=== PATIENT | female | born 1980 | race Caucasian/White ===

== ENCOUNTER 2018-09-14 10:48 | Emergency (ER) | payer BC ==
--- NOTE | 2018-09-14 11:07 | EDPHY ---
H & P Stated Complaint: left rib area pain sp fall on Wednesday on ice. Time Seen by Provider: 09/14/18 11:02 HPI/ROS: 38 yo F presents c/o slipped on ice on Wednesday, 2 days ago, and landed on her left side on pavers, now with left anterior lateral rib pain. No cough, no fever or chills. Pt denies prior hx of rib fractures. No abdominal pain, no nausea, or vomiting. Review of systems as per hpi-left anterior rib pain General no fever no chills no weakness HEENT no eye pain no eye discharge. No eye redness, no sore throat Respiratory no cough, no shortness of breath Cardiac no chest pain, no peripheral edema GI no abdominal pain, no diarrhea, no constipation, no nausea, no vomiting no flank pain, no hematuria, no dysuria Musculoskeletal no myalgias, no joint pain Heme no easy bruising, no easy bleeding Endo no polyuria, no polydipsia Skin no rashes, no pruritus Neuro no syncope, no dizziness, no headaches Psych is no suicidal ideation, no homicidal ideation Source: Patient Exam Limitations: No limitations - Personal History LMP (Females 10-55): 1-7 Days Ago Current Tetanus Diphtheria and Acellular Pertussis (TDAP): Yes Tetanus Vaccine Date: 2014 - Medical/Surgical History Hx Asthma: No Hx Chronic Respiratory Disease: No Hx Diabetes: No Hx Cardiac Disease: No Hx Renal Disease: No Hx Cirrhosis: No Hx Alcoholism: No Hx HIV/AIDS: No Hx Splenectomy or Spleen Trauma: No Other PMH: Ectopic surgery. Hypothyroid - Family History Significant Family History: No pertinent family hx - Social History Smoking Status: Heavy smoker Alcohol Use: Occasionally Drug Use: None - Physical Exam Exam: 38 yo F HEENT atraumatic normocephalic, extraocular muscles intact, anicteric Oropharynx negative for erythema negative exudate, tolerating her own secretions Neck supple no meningismus Lungs clear to auscultation bilaterally Chest left lower anterior lateral chest ttp, no crepitus, no ecchymoses Heart regular rate and rhythm without murmur rub or gallop Abdomen nondistended normoactive bowel sounds soft nontender Back no CVA tenderness, no step-offs, no spinal tenderness Extremities no cyanosis clubbing or edema Neuro alert and oriented, no focal deficits Constitutional: Initial Vital Signs Temperature (C) 36.5 C 09/14/18 10:54 Heart Rate 80 09/14/18 10:54 Respiratory Rate 16 09/14/18 10:54 Blood Pressure 128/97 H 09/14/18 10:54 O2 Sat (%) 99 09/14/18 10:54 O2 Delivery Mode Room Air Allergies/Adverse Reactions: Penicillins Allergy (Verified 09/14/18 10:59) Home Medications: Medication Instructions Recorded Levothyroxine 09/14/18 oxyCODONE/APAP 5/325 [Percocet 1 - 2 tab PO Q8H PRN #20 tab 09/14/18 5/325 (*)] Medical Decision Making - Diagnostics Imaging Results: Imaging Impressions Ribs w/Chest X-Ray 09/14/18 11:07 Impression: 1. Left sixth, seventh and eighth slightly displaced acute rib fractures. 2. No pneumothorax. 3. No pulmonary contusion or pleural effusion. Findings and recommendations discussed with Emergency Department physician, Nadeen Liu MD, at 1220 hour, 09/14/2018. Final report concurs with initial preliminary interpretation. ED Course/Re-evaluation: pt here to be evaluated for left lower rib pain after a fall. good breath sounds rib xray pos 3 non displaced left anterlateral rib fx 6-8 Imp rib fractures plan incentive spirometer percocet f/u pcp Differential Diagnosis: Differential diagnosis considered but not limited to: Rib contusion, rib fracture, anterior chest wall contusion, pulmonary contusion Departure - Departure Disposition: Home, Routine, Self-Care Clinical Impression: Ribs, multiple fractures Condition: Good Instructions: How to Use an Incentive Spirometer (ED), Rib Fracture (ED) Referrals: NONE *PRIMARY CARE P,. [Primary Care Provider] - As per Instructions [facility] [Provider Group] - As per Instructions Prescriptions: oxyCODONE/APAP 5/325 [Percocet 5/325 (*)] 1 - 2 tab PO Q8H PRN #20 tab PRN Reason: Pain, Severe
[2018-09-14 12:43] VITALS: BP 113/78
== END 2018-09-14 12:36 | disposition home or self-care (01) ==
LOC: CED 10:48
DX: S22.42XA Multiple fractures of ribs, left side, initial encounter for closed fracture (principal); W00.0XXA Fall on same level due to ice and snow, initial encounter
CPT/HCPCS: 71101-PO; 99283-ER